=== PATIENT | female | born 1980 | race Caucasian/White ===

== ENCOUNTER 2017-12-19 07:51 | Outpatient (CLI) | payer BC ==
--- NOTE | 2017-12-19 11:27 | NM ---
NUCLEAR MEDICINE GASTRIC EMPTYING EXAM: HISTORY: Abdominal pain with hematochezia. Positive H. pylori. COMPARISON: None. TECHNIQUE: A hepatobiliary scan was performed after the administration of 2 millicuries of technetium 99m sulfur colloid mixed with eggs. FINDINGS: No gastroesophageal reflux was seen during the examination. There is 65% emptying at 24 minutes. Th ere is 97% emptying at 61 minutes. There is 99% emptying at 121 minutes. T-1/2 of gastric emptying is 19 minutes. IMPRESSION: Normal gastric emptying. POS: LYNNE
== END 2017-12-19 07:52 | disposition home or self-care (01) ==
LOC: NM 07:51
PROVIDERS: ATTEND Internal Medicine Gastroenterology
DX: A04.8 Other specified bacterial intestinal infections (principal); R10.13 Epigastric pain; K92.1 Melena
CPT/HCPCS: 78264; A9541

== ENCOUNTER 2020-05-26 06:11 | Day surgery (SDC) | payer BC ==
[2020-05-23 13:35] VITALS: BMI 21.1
[2020-05-26] MEDS ORDERED: Lidocaine 1% w/Epinephrine 1:100K 20 ML VIAL ONE (06:39)
[2020-05-26] MEDS ORDERED: Bupivacaine 0.25% HCL 30 ML VIAL ONE (06:39)
[2020-05-26] MEDS ORDERED: Fentanyl 100 MCG/2 ML VIAL ONE ×4 (06:40→09:18)
[2020-05-26] MEDS ORDERED: Midazolam HCl 2 mg/2 ml Vial ONE (07:08)
[2020-05-26] MEDS ORDERED: Enoxaparin Sodium 40 MG/0.4 ML SYRINGE ONE (07:22)
[2020-05-26] MEDS ORDERED: Morphine 4 MG/ML VIAL ONE ×4 (09:30→10:27)
--- NOTE | 2020-05-26 09:58 | OP ---
DATE OF PROCEDURE: 05/26/2020 PREOPERATIVE DIAGNOSIS: Ventral hernia. POSTOPERATIVE DIAGNOSIS: Ventral hernia. PROCEDURE PERFORMED: Da Debby laparoscopic ventral hernia repair with mesh, [address] ANESTHESIA: General. ESTIMATED BLOOD LOSS: Minimal. COMPLICATIONS: None. SPECIMEN: None. FINDINGS: Ventral hernia. TECHNIQUE: The patient was taken to the operating room and laid supine on the operating room table. After general anesthetic was obtained, a Padgett was placed. The abdomen was shaved, prepped, and draped in a sterile fashion. Left subcostal 5-mm Optiview trocar placed in usual fashion and high-flow pneumoperitoneum was obtained. Left and right abdominal 8 mm subcostal robot ports were placed. The 5-mm subcostal port was switched out to an 11 mm balloon port. All ports were docked to the robot. The peritoneum was taken down exposing weakness and small openings in the midline above the umbilicus in the area of previous laparoscopic surgery. There was no significant herniated preperitoneal fat. The preperitoneal fat was all dissected away from the posterior fascia in this area. Because the defects were so small, decision was made not to close them primarily. [address] mesh was brought into the sterile field and placed in the abdominal cavity. The exposed mesh side was placed up against the posterior fascia and the nonadherent barrier was kept down against the viscera. It sewn via 2-0 V-Loc around to the posterior fascia. All needles were removed from the abdomen and accounted for. All port sites were infiltrated using local anesthetic. All ports were removed under camera visualization and pneumoperitoneum was let down. PDS was used to close the fascial defect from the camera port incision. All incisions were closed using 4-0 Monocryl and Dermabond. The patient was sent to Recovery in stable condition. All instrument counts, needle counts, and lap counts were correct. Job ID: [id number]
[2020-05-26] MEDS ORDERED: Lidocaine 1% PF 5 ML VIAL ONE (10:18)
[2020-05-26] MEDS ORDERED: Glycopyrrolate 0.2 MG/ML 5 ML SYRINGE ONE (10:18)
[2020-05-26] MEDS ORDERED: EPHEDRINE 25 MG/5 ML SYRINGE ONE (10:18)
[2020-05-26] MEDS ORDERED: Ondansetron PF 4 MG/2 ML Vial ONE (10:18)
[2020-05-26] MEDS ORDERED: PROPOFOL 200 MG/20 ML VIAL ONE (10:18)
[2020-05-26] MEDS ORDERED: Dexamethasone 20 MG/5 ML VIAL ONE (10:18)
[2020-05-26] MEDS ORDERED: Rocuronium Bromide 10 MG/ML (10ML VIAL) ONE (10:18)
[2020-05-26] MEDS ORDERED: Ketorolac Tromethamine 30 MG/ML VIAL ONE (10:18)
[2020-05-26] MEDS ORDERED: HYDROcodone/Acetaminophen 5/325 mg Tablet ONE (11:40)
== END 2020-05-26 12:45 | disposition home or self-care (01) ==
LOC: SDC 06:11
PROVIDERS: ATTEND Surgery
PROC: 0WUF4JZ Supplement Abdominal Wall with Synthetic Substitute, Percutaneous Endoscopic Approach (ICD-10-PCS; principal; 2020-05-26)
DX: K43.2 Incisional hernia without obstruction or gangrene (principal); G43.909 Migraine, unspecified, not intractable, without status migrainosus; K21.9 Gastro-esophageal reflux disease without esophagitis; K59.09 Other constipation; G89.29 Other chronic pain; M25.552 Pain in left hip; M25.551 Pain in right hip; Z79.899 Other long term (current) drug therapy; Z88.8 Allergy status to other drugs, medicaments and biological substances
CPT/HCPCS: C1781; J0690; J1100; J1650; J1885; J2250; J2270; J2405; J2704; J3010; S0020

== ENCOUNTER 2021-04-19 07:46 | Outpatient (CLI) | payer BC | END 2021-04-19 07:47 | disposition home or self-care (01) | LOC: NM 07:46 | PROVIDERS: ATTEND Family Medicine | DX: R10.11 Right upper quadrant pain (principal) | CPT/HCPCS: 78227; A9537 ==